=== PATIENT | male | born 1955 | race African-American/Black ===

== ENCOUNTER 2017-01-30 08:47 | Emergency (ER) | payer BC, OTHER ==
[~2017-01-30] VITALS: Ht 175.3 cm; Wt 87.0 kg
[2017-01-30 08:58] VITALS: BP 150/86
[2017-01-30] MEDS ORDERED: TRAMADOL 50MG TABLET PO ONE (10:00)
== END 2017-01-30 10:45 | disposition home or self-care (01) ==
LOC: ER 09:18
DX: S83.92XA Sprain of unspecified site of left knee, initial encounter (principal); I10 Essential (primary) hypertension; Y93.39 Activity, other involving climbing, rappelling and jumping off; Y93.89 Activity, other specified; Y92.89 Other specified places as the place of occurrence of the external cause; Y99.8 Other external cause status
CPT/HCPCS: 73560; 99284; L1830; Z7610